=== PATIENT | female | born 1970 | race Caucasian/White ===

== ENCOUNTER 2016-10-02 16:24 | Inpatient (IN) | payer OTHER ==
[~2016-10-02] VITALS: Ht 170.2 cm; Wt 66.2 kg
[~2016-10-02 16:24] MED LIST: BISA10SU1 RC; CEFT1PDS43 IV; DEXT1CAP3 GT; IRON65TA10 GT; KEP500L GT; LAC GT; LEVO500T6 GT; MAGN400S60 GT; MEDI30SO GT; NA P135N19 RC; OMEP20TC9 GT; [UNRECOGNIZED DRUG - CODE] GT
[2016-10-02 16:28] VITALS: BP 124/66
[2016-10-02] MEDS ORDERED: CRAN450C GT (16:56)
[2016-10-02] MEDS ORDERED: DOCU100L GT (16:56)
[2016-10-02] MEDS ORDERED: CARV6.25 GT (16:56)
[2016-10-02] MEDS ORDERED: [UNRECOGNIZED DRUG - CODE] GT (16:56)
[2016-10-02] MEDS ORDERED: MULT-877 GT (16:56)
[2016-10-02] MEDS ORDERED: OMEP20EC4 GT (16:56)
[2016-10-02 17:17] LABS: BASOPHILS # (AUTO) 0.2 K/uL (0.00-0.22); BASOPHILS % (AUTO) 2.1 % (0.0-2.0)
[2016-10-02 17:19] LABS: BLOOD GAS HCO3 18.3 mmol/L; BLOOD GAS PCO2 38.6 mmHg (20-50); BLOOD GAS PH 7.293 (7.35-7.45); BLOOD GAS PO2 63.3 mmHg
[2016-10-02 17:20] LABS: BLOOD GAS BASE EXCESS -7.6 mmol/L (-2.0-2.0); BLOOD GAS O2 SAT% 89.5 % (92.0-98.5)
[2016-10-02 17:22] LABS: EOSINOPHILS # (AUTO) 0.2 K/uL (0-0.4); EOSINOPHILS % (AUTO) 1.8 % (0.0-4.0); HEMATOCRIT 44.1 % (36-48); HEMOGLOBIN 14.9 g/dL (12.0-16.0); LYMPHOCYTES # (AUTO) 1.6 K/uL (2.5-16.5); LYMPHOCYTES % (AUTO) 17.4 % (20.5-51.1); MEAN CORPUSCULAR HEMOGLOBIN 33 pg (27-31); MEAN CORPUSCULAR HGB CONC 34 g/dL (33-37); MEAN CORPUSCULAR VOLUME 99 fL (80-94); MONOCYTES # (AUTO) 0.4 K/uL (0.8-1.0); MONOCYTES % (AUTO) 4.4 % (1.7-9.3); NEUTROPHILS # (AUTO) 6.7 K/uL (1.8-7.7); NEUTROPHILS % (AUTO) 74.3 % (42.2-75.2); PLATELET COUNT (AUTO) 261 K/uL (140-450); RED BLOOD CELL COUNT(AUTO) 4.44 MIL/uL (4.20-5.40); RED CELL DISTRIBUTION WIDTH 12.1 % (11.6-13.7); WHITE BLOOD COUNT (AUTO) 9.1 K/uL (4.8-10.8)
[2016-10-02 17:30] LABS: INR 1.1 (0.8-1.2); PARTIAL THROMBOPLASTIN TIME 28.5 secs (22-35.6); PROTHROMBIN TIME 10.4 secs (10.8-13.4)
[2016-10-02 17:32] LABS: CALCIUM 7.9 mg/dL (8.5-10.1); CARBON DIOXIDE 21.1 mmol/L (21-32); CREATININE 0.9 mg/dL (0.6-1.3); POTASSIUM 4.1 mmol/L (3.5-5.1)
[2016-10-02] MEDS ORDERED: NACL 0.9% 1,000 ML IV ONE (17:35)
[2016-10-02 17:37] LABS: ALBUMIN 3.2 g/dL (3.4-5.0); TOTAL BILIRUBIN 0.3 mg/dL (0.0-1.0); TOTAL PROTEIN, SERUM 7.3 g/dL (6.4-8.2)
[2016-10-02 18:26] LABS: BILIRUBIN,URINE NEGATIVE (NEGATIVE); BLOOD, URINE 2+ (NEGATIVE); COLOR,URINE YELLOW (YELLOW); NITRITE, URINE NEGATIVE (NEGATIVE); PROTEIN,URINE 3+ (NEGATIVE); UGLUCOSE TRACE (NEGATIVE)
[2016-10-02 18:31] LABS: APPEARANCE,URINE CLOUDY (CLEAR)
[2016-10-02 18:42] LABS: LEUKOCYTE ESTERASE ,URINE TRACE (NEGATIVE)
[2016-10-02 18:44] LABS: BACTERIA,URINE 3+ /HPF (None Seen)
[2016-10-02] MEDS ORDERED: ALBUMIN HUMAN 25% 50 ML IV SCH (18:50)
[2016-10-02] MEDS ORDERED: MORPHINE SULFATE 2 MG/ML SYR IVP PRN (18:50)
[2016-10-02] MEDS ORDERED: ACETAMINOPHEN 325 MG TAB PO PRN (18:50)
[2016-10-02] MEDS ORDERED: ONDANSETRON 4 MG/2 ML VIAL IVP PRN (18:50)
[2016-10-02 19:06] VITALS: BP 109/83
[2016-10-02] MEDS ORDERED: cefTRIAXone 1,000 MG VIAL ONE (19:17)
[2016-10-02] MEDS: IPRATROPIUM 0.02% 0.5 MG/2.5 ML NEBU IH SCH (21:22)
[2016-10-02] MEDS: ALBUTEROL 0.083% 2.5 MG/3 ML NEBU IH SCH (21:22)
[2016-10-02 21:38] VITALS: BP 108/81
[2016-10-02 23:10] VITALS: BP 105/85
[2016-10-03] VITALS (24 sets, daily range): BP systolic 91–144; BP diastolic 54–99
[2016-10-03] MEDS: ALBUTEROL 0.083% 2.5 MG/3 ML NEBU IH SCH ×4 (00:40→19:13)
[2016-10-03] MEDS: IPRATROPIUM 0.02% 0.5 MG/2.5 ML NEBU IH SCH ×4 (00:40→19:13)
[2016-10-03] MEDS ORDERED: PIPERACILLIN/TAZOBACTAM 3.375 GM VIAL IV ONE ×2 (00:41→04:59)
[2016-10-03] MEDS: NACL 0.9% 1,000 ML IV SCH ×3 (00:51→14:50)
[2016-10-03] MEDS: PIPERACILLIN/TAZOBACTAM 3.375 GM in DEXTROSE 5% 50 ML IV SCH ×2 (00:56→05:03)
[2016-10-03 01:16] LABS: CREATINE KINASE MB 2.6 ng/mL (0-3.6)
[2016-10-03] MEDS ORDERED: LORazepam 2 MG/ML VIAL IVP PRN (06:00)
[2016-10-03 06:04] LABS: WHITE BLOOD COUNT (AUTO) 18.3 K/uL (4.8-10.8)
[2016-10-03 06:05] LABS: HEMATOCRIT 34.9 % (36-48); HEMOGLOBIN 12.1 g/dL (12.0-16.0); MEAN CORPUSCULAR HEMOGLOBIN 34 pg (27-31); MEAN CORPUSCULAR HGB CONC 35 g/dL (33-37); MEAN CORPUSCULAR VOLUME 99 fL (80-94); PLATELET COUNT (AUTO) 184 K/uL (140-450); RED BLOOD CELL COUNT(AUTO) 3.54 MIL/uL (4.20-5.40); RED CELL DISTRIBUTION WIDTH 12.1 % (11.6-13.7)
[2016-10-03] MEDS ORDERED: levETIRAcetam 500 MG in NACL 0.9% 100 ML IV SCH ×2 (06:20→21:00)
[2016-10-03] MEDS ORDERED: levETIRAcetam 100 MG/ML VIAL IV ONE (06:31)
[2016-10-03 07:04] LABS: POTASSIUM 3.4 mmol/L (3.5-5.1)
[2016-10-03 07:05] LABS: ALBUMIN 3.1 g/dL (3.4-5.0); ANION GAP 12.9 (8-16); CARBON DIOXIDE 23.5 mmol/L (21-32); CREATININE 0.6 mg/dL (0.6-1.3); TOTAL BILIRUBIN 0.5 mg/dL (0.0-1.0); TOTAL PROTEIN, SERUM 6.5 g/dL (6.4-8.2)
[2016-10-03 07:11] LABS: BAND % (MANUAL) 3 % (0-8); LYMPHOCYTES % (MANUAL) 2 % (20-46); MONOCYTES % (MANUAL) 2 % (5-12); NEUTROPHILS % (MANUAL) 93 (43-65)
[2016-10-03] MEDS ORDERED: ASPIRIN 81 MG TAB.CHEW GT SCH (09:30)
[2016-10-03] MEDS ORDERED: METOPROLOL 25 MG TAB GT SCH (09:30)
[2016-10-03] MEDS: ENOXAPARIN 40 MG/0.4 ML SYR SUBQ SCH (09:37)
[2016-10-03 10:25] LABS: CREATINE KINASE MB 1.6 ng/mL (0-3.6)
[2016-10-03] MEDS: PIPER/TAZO 3.375GM/D5W PREMIX 50 ML IV SCH ×3 (12:42→23:49)
[2016-10-03] MEDS ORDERED: PROBIOTIC SCREEN 1 EA MISC MC PRN (16:40)
[2016-10-03] MEDS ORDERED: POTASSIUM CHLORIDE 10 MEQ TABER PO SCH (17:00)
[2016-10-03] MEDS: VALPROATE SODIUM 500 MG in NACL 0.9% 100 ML IV SCH ×2 (17:09→20:28)
[2016-10-03] MEDS: METOPROLOL 25 MG TAB GT SCH (20:27)
[2016-10-03] MEDS: SIMVASTATIN 20 MG TAB GT SCH (20:28)
[2016-10-03] MEDS: TOPIRAMATE 100 MG TAB GT SCH (20:28)
[2016-10-03] MEDS: levETIRAcetam 1,000 MG in NACL 0.9% 100 ML IV SCH (20:29)
[2016-10-03] MEDS ORDERED: levETIRAcetam 1,000 MG in NACL 0.9% 100 ML IV SCH (21:00)
[2016-10-04] VITALS (24 sets, daily range): BP systolic 113–143; BP diastolic 62–89
[2016-10-04] MEDS: NACL 0.9% 1,000 ML IV SCH ×3 (00:50→20:57)
[2016-10-04] MEDS: IPRATROPIUM 0.02% 0.5 MG/2.5 ML NEBU IH SCH ×4 (01:48→19:16)
[2016-10-04] MEDS: ALBUTEROL 0.083% 2.5 MG/3 ML NEBU IH SCH ×4 (01:48→19:16)
[2016-10-04 05:06] LABS: HEMATOCRIT 33.4 % (36-48); HEMOGLOBIN 11.2 g/dL (12.0-16.0); MEAN CORPUSCULAR HEMOGLOBIN 33 pg (27-31); MEAN CORPUSCULAR HGB CONC 33 g/dL (33-37); MEAN CORPUSCULAR VOLUME 99 fL (80-94); PLATELET COUNT (AUTO) 173 K/uL (140-450); RED BLOOD CELL COUNT(AUTO) 3.38 MIL/uL (4.20-5.40); WHITE BLOOD COUNT (AUTO) 17.1 K/uL (4.8-10.8)
[2016-10-04] MEDS: levETIRAcetam 1,000 MG in NACL 0.9% 100 ML IV SCH ×3 (05:06→20:58)
[2016-10-04] MEDS: VALPROATE SODIUM 500 MG in NACL 0.9% 100 ML IV SCH ×3 (05:06→20:58)
[2016-10-04] MEDS: PIPER/TAZO 3.375GM/D5W PREMIX 50 ML IV SCH ×3 (05:52→18:23)
[2016-10-04 06:17] LABS: ALBUMIN 2.8 g/dL (3.4-5.0); ANION GAP 12.9 (8-16); CALCIUM 7.2 mg/dL (8.5-10.1); CARBON DIOXIDE 22.4 mmol/L (21-32); CREATININE 0.6 mg/dL (0.6-1.3); POTASSIUM 3.3 mmol/L (3.5-5.1); TOTAL BILIRUBIN 0.5 mg/dL (0.0-1.0); TOTAL PROTEIN, SERUM 6.1 g/dL (6.4-8.2)
[2016-10-04 06:47] LABS: BAND % (MANUAL) 3 % (0-8); LYMPHOCYTES % (MANUAL) 7 % (20-46); MONOCYTES % (MANUAL) 7 % (5-12); NEUTROPHILS % (MANUAL) 82 (43-65)
[2016-10-04] MEDS: TOPIRAMATE 100 MG TAB GT SCH ×2 (09:06→20:58)
[2016-10-04] MEDS: ASPIRIN 81 MG TAB.CHEW GT SCH (09:06)
[2016-10-04] MEDS: METOPROLOL 25 MG TAB GT SCH ×2 (09:07→20:57)
[2016-10-04] MEDS: LACTOBACILLUS RHAMNOSUS GG 1 EACH CAP GT SCH (09:07)
[2016-10-04] MEDS: ENOXAPARIN 40 MG/0.4 ML SYR SUBQ SCH (09:08)
[2016-10-04] MEDS ORDERED: POTASSIUM CHLORIDE 10 MEQ TABER PO SCH (10:00)
[2016-10-04] MEDS ORDERED: POTASSIUM CHLORIDE 20% 40 MEQ/15 ML UDC GT SCH (10:00)
[2016-10-04] MEDS: ACETAMINOPHEN 325 MG TAB GT PRN (11:32)
[2016-10-04] MEDS: SIMVASTATIN 20 MG TAB GT SCH (20:57)
[2016-10-05] VITALS (24 sets, daily range): BP systolic 98–142; BP diastolic 52–87
[2016-10-05] MEDS: PIPER/TAZO 3.375GM/D5W PREMIX 50 ML IV SCH ×5 (00:44→23:45)
[2016-10-05] MEDS: ALBUTEROL 0.083% 2.5 MG/3 ML NEBU IH SCH ×4 (00:51→19:00)
[2016-10-05] MEDS: IPRATROPIUM 0.02% 0.5 MG/2.5 ML NEBU IH SCH ×4 (00:51→19:00)
[2016-10-05] MEDS: VALPROATE SODIUM 500 MG in NACL 0.9% 100 ML IV SCH ×3 (04:43→20:20)
[2016-10-05] MEDS: levETIRAcetam 1,000 MG in NACL 0.9% 100 ML IV SCH ×3 (04:43→21:10)
[2016-10-05 05:44] LABS: BASOPHILS # (AUTO) 0.1 K/uL (0.00-0.22); BASOPHILS % (AUTO) 0.7 % (0.0-2.0); EOSINOPHILS # (AUTO) 0.1 K/uL (0-0.4); HEMATOCRIT 29.3 % (36-48); HEMOGLOBIN 9.9 g/dL (12.0-16.0); LYMPHOCYTES # (AUTO) 1.6 K/uL (2.5-16.5); LYMPHOCYTES % (AUTO) 13.9 % (20.5-51.1); MEAN CORPUSCULAR HEMOGLOBIN 34 pg (27-31); MEAN CORPUSCULAR HGB CONC 34 g/dL (33-37); MEAN CORPUSCULAR VOLUME 101 fL (80-94); MONOCYTES # (AUTO) 1.1 K/uL (0.8-1.0); MONOCYTES % (AUTO) 9.8 % (1.7-9.3); NEUTROPHILS # (AUTO) 8.3 K/uL (1.8-7.7); NEUTROPHILS % (AUTO) 74.6 % (42.2-75.2); PLATELET COUNT (AUTO) 152 K/uL (140-450); RED BLOOD CELL COUNT(AUTO) 2.92 MIL/uL (4.20-5.40); RED CELL DISTRIBUTION WIDTH 12.9 % (11.6-13.7); WHITE BLOOD COUNT (AUTO) 11.2 K/uL (4.8-10.8)
[2016-10-05] MEDS: LANSOPRAZOLE 30 MG CAPDR GT SCH (05:51)
[2016-10-05] MEDS: NACL 0.9% 1,000 ML IV SCH ×2 (05:52→17:33)
[2016-10-05 05:56] LABS: ALBUMIN 2.3 g/dL (3.4-5.0); CALCIUM 7.1 mg/dL (8.5-10.1); CARBON DIOXIDE 20.4 mmol/L (21-32); CREATININE 0.6 mg/dL (0.6-1.3); POTASSIUM 3.4 mmol/L (3.5-5.1); TOTAL BILIRUBIN 0.3 mg/dL (0.0-1.0); TOTAL PROTEIN, SERUM 5.4 g/dL (6.4-8.2)
[2016-10-05] MEDS: METOPROLOL 25 MG TAB GT SCH ×2 (08:13→20:19)
[2016-10-05] MEDS: ASPIRIN 81 MG TAB.CHEW GT SCH (08:13)
[2016-10-05] MEDS: TOPIRAMATE 100 MG TAB GT SCH ×2 (08:14→20:19)
[2016-10-05] MEDS: LACTOBACILLUS RHAMNOSUS GG 1 EACH CAP GT SCH (08:14)
[2016-10-05] MEDS: ENOXAPARIN 40 MG/0.4 ML SYR SUBQ SCH (08:15)
[2016-10-05] MEDS ORDERED: HYDRAGUARD CREAM TP PRN (10:30)
[2016-10-05] MEDS: HYDRAGUARD CREAM TP SCH (13:17)
[2016-10-05] MEDS ORDERED: POTASSIUM CHLORIDE 20% 40 MEQ/15 ML UDC GT SCH (17:28)
[2016-10-05] MEDS: ACETAMINOPHEN 325 MG TAB GT PRN (19:39)
[2016-10-05] MEDS: SIMVASTATIN 20 MG TAB GT SCH (20:19)
[2016-10-05] MEDS: metroNIDAZOLE 500 MG/NS PREMIX 100 ML IV SCH (21:43)
[2016-10-06] VITALS (24 sets, daily range): BP systolic 91–122; BP diastolic 57–78
[2016-10-06] MEDS: IPRATROPIUM 0.02% 0.5 MG/2.5 ML NEBU IH SCH ×4 (01:00→18:50)
[2016-10-06] MEDS: ALBUTEROL 0.083% 2.5 MG/3 ML NEBU IH SCH ×4 (01:00→18:50)
[2016-10-06] MEDS: HYDRAGUARD CREAM TP SCH ×2 (01:05→12:11)
[2016-10-06] MEDS: metroNIDAZOLE 500 MG/NS PREMIX 100 ML IV SCH ×3 (04:22→20:19)
[2016-10-06] MEDS: NACL 0.9% 1,000 ML IV SCH ×3 (04:24→22:50)
[2016-10-06] MEDS: VALPROATE SODIUM 500 MG in NACL 0.9% 100 ML IV SCH ×3 (05:15→20:02)
[2016-10-06 05:43] LABS: MONOCYTES # (AUTO) 1.1 K/uL (0.8-1.0)
[2016-10-06 05:55] LABS: BASOPHILS # (AUTO) 0.1 K/uL (0.00-0.22); BASOPHILS % (AUTO) 0.8 % (0.0-2.0); EOSINOPHILS # (AUTO) 0.2 K/uL (0-0.4); EOSINOPHILS % (AUTO) 1.2 % (0.0-4.0); HEMATOCRIT 28.6 % (36-48); HEMOGLOBIN 9.5 g/dL (12.0-16.0); LYMPHOCYTES # (AUTO) 0.9 K/uL (2.5-16.5); LYMPHOCYTES % (AUTO) 6.9 % (20.5-51.1); MEAN CORPUSCULAR HEMOGLOBIN 33 pg (27-31); MEAN CORPUSCULAR HGB CONC 33 g/dL (33-37); MEAN CORPUSCULAR VOLUME 100 fL (80-94); MONOCYTES % (AUTO) 8.1 % (1.7-9.3); NEUTROPHILS # (AUTO) 11.4 K/uL (1.8-7.7); PLATELET COUNT (AUTO) 160 K/uL (140-450); RED BLOOD CELL COUNT(AUTO) 2.86 MIL/uL (4.20-5.40); RED CELL DISTRIBUTION WIDTH 12.8 % (11.6-13.7); WHITE BLOOD COUNT (AUTO) 13.7 K/uL (4.8-10.8)
[2016-10-06 06:05] LABS: ANION GAP 13.8 (8-16); CALCIUM 6.8 mg/dL (8.5-10.1); CARBON DIOXIDE 19.4 mmol/L (21-32); CREATININE 0.5 mg/dL (0.6-1.3); POTASSIUM 3.2 mmol/L (3.5-5.1)
[2016-10-06] MEDS: levETIRAcetam 1,000 MG in NACL 0.9% 100 ML IV SCH ×3 (06:18→21:02)
[2016-10-06] MEDS: PIPER/TAZO 3.375GM/D5W PREMIX 50 ML IV SCH ×4 (06:58→23:29)
[2016-10-06] MEDS: LANSOPRAZOLE 30 MG CAPDR GT SCH (07:12)
[2016-10-06] MEDS: TOPIRAMATE 100 MG TAB GT SCH ×2 (08:08→20:19)
[2016-10-06] MEDS: LACTOBACILLUS RHAMNOSUS GG 1 EACH CAP GT SCH (08:08)
[2016-10-06] MEDS: ASPIRIN 81 MG TAB.CHEW GT SCH (08:08)
[2016-10-06] MEDS: METOPROLOL 25 MG TAB GT SCH ×2 (08:09→20:19)
[2016-10-06] MEDS: ENOXAPARIN 40 MG/0.4 ML SYR SUBQ SCH (08:14)
[2016-10-06] MEDS ORDERED: POTASSIUM CHLORIDE 20% 40 MEQ/15 ML UDC GT SCH (12:00)
[2016-10-06] MEDS: SIMVASTATIN 20 MG TAB GT SCH (20:19)
[2016-10-07] VITALS (24 sets, daily range): BP systolic 108–120; BP diastolic 63–84
[2016-10-07] MEDS: IPRATROPIUM 0.02% 0.5 MG/2.5 ML NEBU IH SCH ×4 (01:08→18:55)
[2016-10-07] MEDS: ALBUTEROL 0.083% 2.5 MG/3 ML NEBU IH SCH ×4 (01:08→18:55)
[2016-10-07] MEDS: HYDRAGUARD CREAM TP SCH ×2 (01:46→13:00)
[2016-10-07] MEDS: NACL 0.9% 1,000 ML IV SCH ×3 (03:37→20:03)
[2016-10-07] MEDS: levETIRAcetam 1,000 MG in NACL 0.9% 100 ML IV SCH ×3 (04:04→20:02)
[2016-10-07] MEDS: VALPROATE SODIUM 500 MG in NACL 0.9% 100 ML IV SCH ×3 (04:37→20:03)
[2016-10-07] MEDS: PIPER/TAZO 3.375GM/D5W PREMIX 50 ML IV SCH ×4 (05:18→23:12)
[2016-10-07] MEDS: metroNIDAZOLE 500 MG/NS PREMIX 100 ML IV SCH ×3 (05:18→20:59)
[2016-10-07] MEDS: LANSOPRAZOLE 30 MG CAPDR GT SCH (06:31)
[2016-10-07 06:39] LABS: HEMATOCRIT 24.9 % (36-48); HEMOGLOBIN 8.3 g/dL (12.0-16.0); MEAN CORPUSCULAR HEMOGLOBIN 33 pg (27-31); MEAN CORPUSCULAR HGB CONC 33 g/dL (33-37); MEAN CORPUSCULAR VOLUME 100 fL (80-94); PLATELET COUNT (AUTO) 158 K/uL (140-450); RED BLOOD CELL COUNT(AUTO) 2.49 MIL/uL (4.20-5.40); RED CELL DISTRIBUTION WIDTH 12.7 % (11.6-13.7); WHITE BLOOD COUNT (AUTO) 9.5 K/uL (4.8-10.8)
[2016-10-07 06:43] LABS: ANION GAP 12.5 (8-16); CALCIUM 6.8 mg/dL (8.5-10.1); CARBON DIOXIDE 20.8 mmol/L (21-32); CREATININE 0.5 mg/dL (0.6-1.3); POTASSIUM 3.3 mmol/L (3.5-5.1)
[2016-10-07 07:40] LABS: BAND % (MANUAL) 0 % (0-8); LYMPHOCYTES % (MANUAL) 9 % (20-46); MONOCYTES % (MANUAL) 8 % (5-12); NEUTROPHILS % (MANUAL) 83 (43-65)
[2016-10-07 07:41] LABS: BASOPHILS % (MANUAL) 0 % (0-2); EOSINOPHILS % (MANUAL) 0 % (0-4); PLATELET ESTIMATE ADEQUATE
[2016-10-07] MEDS: METOPROLOL 25 MG TAB GT SCH ×2 (08:43→20:59)
[2016-10-07] MEDS: ASPIRIN 81 MG TAB.CHEW GT SCH (08:43)
[2016-10-07] MEDS: TOPIRAMATE 100 MG TAB GT SCH ×2 (08:43→20:59)
[2016-10-07] MEDS: LACTOBACILLUS RHAMNOSUS GG 1 EACH CAP GT SCH (08:44)
[2016-10-07] MEDS: ENOXAPARIN 40 MG/0.4 ML SYR SUBQ SCH (08:45)
[2016-10-07] MEDS ORDERED: POTASSIUM CHLORIDE 20% 40 MEQ/15 ML UDC GT SCH (12:00)
[2016-10-07] MEDS ORDERED: MAG SULF 2000 MG/WATER PREMIX 50 ML IV SCH (13:30)
[2016-10-07] MEDS: SIMVASTATIN 20 MG TAB GT SCH (20:59)
[2016-10-08] VITALS (24 sets, daily range): BP systolic 98–140; BP diastolic 60–89
[2016-10-08] MEDS: HYDRAGUARD CREAM TP SCH ×2 (01:00→13:01)
[2016-10-08] MEDS: IPRATROPIUM 0.02% 0.5 MG/2.5 ML NEBU IH SCH ×4 (01:05→19:07)
[2016-10-08] MEDS: ALBUTEROL 0.083% 2.5 MG/3 ML NEBU IH SCH ×4 (01:06→19:08)
[2016-10-08] MEDS: levETIRAcetam 1,000 MG in NACL 0.9% 100 ML IV SCH ×3 (04:02→21:00)
[2016-10-08] MEDS: VALPROATE SODIUM 500 MG in NACL 0.9% 100 ML IV SCH ×3 (04:08→22:06)
[2016-10-08] MEDS: metroNIDAZOLE 500 MG/NS PREMIX 100 ML IV SCH ×3 (04:28→21:09)
[2016-10-08] MEDS: LANSOPRAZOLE 30 MG CAPDR GT SCH (05:33)
[2016-10-08] MEDS: LACTOBACILLUS RHAMNOSUS GG 1 EACH CAP GT SCH (08:51)
[2016-10-08] MEDS: ASPIRIN 81 MG TAB.CHEW GT SCH (08:51)
[2016-10-08] MEDS: TOPIRAMATE 100 MG TAB GT SCH ×2 (08:51→21:05)
[2016-10-08] MEDS: METOPROLOL 25 MG TAB GT SCH ×2 (08:52→21:06)
[2016-10-08] MEDS: ENOXAPARIN 40 MG/0.4 ML SYR SUBQ SCH (08:54)
[2016-10-08] MEDS ORDERED: POTASSIUM CHLORIDE 20% 40 MEQ/15 ML UDC GT SCH (11:00)
[2016-10-08] MEDS: NACL 0.9% 1,000 ML IV SCH ×2 (13:00→14:50)
[2016-10-08] MEDS: ACETAMINOPHEN 325 MG TAB GT PRN (18:09)
[2016-10-08] MEDS: SIMVASTATIN 20 MG TAB GT SCH (21:05)
[2016-10-09] VITALS (24 sets, daily range): BP systolic 111–176; BP diastolic 71–94
[2016-10-09] MEDS: HYDRAGUARD CREAM TP SCH ×2 (01:00→12:56)
[2016-10-09] MEDS: IPRATROPIUM 0.02% 0.5 MG/2.5 ML NEBU IH SCH ×4 (01:17→19:55)
[2016-10-09] MEDS: ALBUTEROL 0.083% 2.5 MG/3 ML NEBU IH SCH ×4 (01:17→19:55)
[2016-10-09] MEDS: NACL 0.9% 1,000 ML IV SCH ×2 (01:55→09:54)
[2016-10-09] MEDS: metroNIDAZOLE 500 MG/NS PREMIX 100 ML IV SCH (04:35)
[2016-10-09] MEDS: VALPROATE SODIUM 500 MG in NACL 0.9% 100 ML IV SCH (05:18)
[2016-10-09] MEDS: levETIRAcetam 1,000 MG in NACL 0.9% 100 ML IV SCH (05:19)
[2016-10-09] MEDS: LANSOPRAZOLE 30 MG CAPDR GT SCH (06:35)
[2016-10-09] MEDS: ASPIRIN 81 MG TAB.CHEW GT SCH (08:07)
[2016-10-09] MEDS: TOPIRAMATE 100 MG TAB GT SCH ×2 (08:07→20:23)
[2016-10-09] MEDS: METOPROLOL 25 MG TAB GT SCH ×2 (08:07→20:23)
[2016-10-09] MEDS: ENOXAPARIN 40 MG/0.4 ML SYR SUBQ SCH (08:12)
[2016-10-09] MEDS: LACTOBACILLUS RHAMNOSUS GG 1 EACH CAP GT SCH (08:20)
[2016-10-09] MEDS ORDERED: MORPHINE SULFATE 2 MG/ML SYR IVP PRN (10:20)
[2016-10-09] MEDS: metroNIDAZOLE 500 MG TAB GT SCH ×2 (12:55→20:22)
[2016-10-09] MEDS: VALPROIC ACID 250 MG/5 ML UDC GT SCH ×2 (12:55→20:21)
[2016-10-09] MEDS: levETIRAcetam 500 MG TAB GT SCH ×2 (12:55→20:22)
[2016-10-09] MEDS: SIMVASTATIN 20 MG TAB GT SCH (20:24)
[2016-10-09] MEDS: ACETAMINOPHEN 325 MG TAB GT PRN (20:24)
[2016-10-10] VITALS (24 sets, daily range): BP systolic 94–132; BP diastolic 62–86
[2016-10-10] MEDS: HYDRAGUARD CREAM TP SCH ×2 (01:00→12:16)
[2016-10-10] MEDS: ALBUTEROL 0.083% 2.5 MG/3 ML NEBU IH SCH ×4 (01:33→19:06)
[2016-10-10] MEDS: IPRATROPIUM 0.02% 0.5 MG/2.5 ML NEBU IH SCH ×4 (01:33→19:06)
[2016-10-10] MEDS: VALPROIC ACID 250 MG/5 ML UDC GT SCH ×3 (05:00→20:41)
[2016-10-10] MEDS: metroNIDAZOLE 500 MG TAB GT SCH ×3 (05:00→20:40)
[2016-10-10] MEDS: levETIRAcetam 500 MG TAB GT SCH ×3 (05:01→20:41)
[2016-10-10 05:23] LABS: ANION GAP 13.1 (8-16); CALCIUM 7.6 mg/dL (8.5-10.1); CARBON DIOXIDE 21.5 mmol/L (21-32); CREATININE 0.5 mg/dL (0.6-1.3); POTASSIUM 3.6 mmol/L (3.5-5.1)
[2016-10-10 05:40] LABS: BASOPHILS # (AUTO) 0.1 K/uL (0.00-0.22); BASOPHILS % (AUTO) 0.7 % (0.0-2.0); EOSINOPHILS # (AUTO) 0.1 K/uL (0-0.4); EOSINOPHILS % (AUTO) 1.1 % (0.0-4.0); HEMATOCRIT 29.7 % (36-48); HEMOGLOBIN 9.6 g/dL (12.0-16.0); LYMPHOCYTES # (AUTO) 1.1 K/uL (2.5-16.5); LYMPHOCYTES % (AUTO) 13.7 % (20.5-51.1); MEAN CORPUSCULAR HEMOGLOBIN 32 pg (27-31); MEAN CORPUSCULAR HGB CONC 32 g/dL (33-37); MEAN CORPUSCULAR VOLUME 101 fL (80-94); NEUTROPHILS # (AUTO) 5.4 K/uL (1.8-7.7); NEUTROPHILS % (AUTO) 71.5 % (42.2-75.2); PLATELET COUNT (AUTO) 305 K/uL (140-450); RED BLOOD CELL COUNT(AUTO) 2.94 MIL/uL (4.20-5.40); RED CELL DISTRIBUTION WIDTH 12.7 % (11.6-13.7); WHITE BLOOD COUNT (AUTO) 7.7 K/uL (4.8-10.8)
[2016-10-10] MEDS: LANSOPRAZOLE 30 MG CAPDR GT SCH (06:15)
[2016-10-10] MEDS: ASPIRIN 81 MG TAB.CHEW GT SCH (08:29)
[2016-10-10] MEDS: TOPIRAMATE 100 MG TAB GT SCH ×2 (08:29→20:40)
[2016-10-10] MEDS: METOPROLOL 25 MG TAB GT SCH ×2 (08:30→20:40)
[2016-10-10] MEDS: LACTOBACILLUS RHAMNOSUS GG 1 EACH CAP GT SCH (08:30)
[2016-10-10] MEDS: ENOXAPARIN 40 MG/0.4 ML SYR SUBQ SCH (08:32)
[2016-10-10] MEDS: ACETAMINOPHEN 325 MG TAB GT PRN (12:14)
[2016-10-10] MEDS: SIMVASTATIN 20 MG TAB GT SCH (20:41)
[2016-10-10] MEDS ORDERED: CARVEDILOL 6.25 MG TAB GT SCH (21:00)
[2016-10-11] VITALS (19 sets, daily range): BP systolic 90–108; BP diastolic 60–70
[2016-10-11] MEDS: HYDRAGUARD CREAM TP SCH ×2 (01:08→12:47)
[2016-10-11] MEDS: ALBUTEROL 0.083% 2.5 MG/3 ML NEBU IH SCH ×3 (01:38→13:17)
[2016-10-11] MEDS: IPRATROPIUM 0.02% 0.5 MG/2.5 ML NEBU IH SCH ×3 (01:38→13:17)
[2016-10-11] MEDS: VALPROIC ACID 250 MG/5 ML UDC GT SCH ×2 (04:34→12:46)
[2016-10-11] MEDS: levETIRAcetam 500 MG TAB GT SCH ×2 (04:34→12:46)
[2016-10-11] MEDS: metroNIDAZOLE 500 MG TAB GT SCH ×2 (04:34→12:45)
[2016-10-11] MEDS: LANSOPRAZOLE 30 MG CAPDR GT SCH (05:58)
[2016-10-11] MEDS: LACTOBACILLUS RHAMNOSUS GG 1 EACH CAP GT SCH (08:29)
[2016-10-11] MEDS: TOPIRAMATE 100 MG TAB GT SCH (08:29)
[2016-10-11] MEDS: ASPIRIN 81 MG TAB.CHEW GT SCH (08:30)
[2016-10-11] MEDS: METOPROLOL 25 MG TAB GT SCH (08:30)
[2016-10-11] MEDS: ENOXAPARIN 40 MG/0.4 ML SYR SUBQ SCH (08:33)
== END 2016-10-11 19:40 | DRG 720 ==
LOC: MED 16:24 → MIC 20:33
PROVIDERS: ADMIT Internal Medicine Pulmonary Disease; ATTEND Internal Medicine Pulmonary Disease
PROC: 0W9B30Z Drainage of Left Pleural Cavity with Drainage Device, Percutaneous Approach (ICD-10-PCS; principal; 2016-10-02)
PROC: 05H633Z Insertion of Infusion Device into Left Subclavian Vein, Percutaneous Approach (ICD-10-PCS; 2016-10-02)
PROC: 5A1955Z Respiratory Ventilation, Greater than 96 Consecutive Hours (ICD-10-PCS; 2016-10-02)
DX: A41.9 Sepsis, unspecified organism (principal); I46.9 Cardiac arrest, cause unspecified; J96.20 Acute and chronic respiratory failure, unspecified whether with hypoxia or hypercapnia; G04.90 Encephalitis and encephalomyelitis, unspecified; R40.20 Unspecified coma; A04.7 Enterocolitis due to Clostridium difficile; G93.1 Anoxic brain damage, not elsewhere classified; Z99.11 Dependence on respirator [ventilator] status; N39.0 Urinary tract infection, site not specified; Z93.0 Tracheostomy status; J93.9 Pneumothorax, unspecified; R40.3 Persistent vegetative state; G40.901 Epilepsy, unspecified, not intractable, with status epilepticus; J98.2 Interstitial emphysema; I31.9 Disease of pericardium, unspecified; R00.0 Tachycardia, unspecified; Z93.1 Gastrostomy status; Z86.61 Personal history of infections of the central nervous system; Z86.73 Personal history of transient ischemic attack (TIA), and cerebral infarction without residual deficits
CPT/HCPCS: 36415; 36600; 51702; 70450; 71010; 71275; 80048; 80053; 81001; 81025; 82550; 82553; 82803; 83605; 83735; 83874; 83880; 84484; 85025; 85610; 85730; 87040; 87070; 87081; 87086; 87186; 87205; 89220; 93005; 93308; 94002; 94003; 94640; 95816; 96361; 96365; 99291; J0696; J1650; J1953; J2060; J2270; J2543; J3475; J3490; J7030; J7060; J7613; J7644; P9046; Q0092; Q9967

== ENCOUNTER 2019-10-30 15:18 | Inpatient (IN) | payer OTHER, SELFPAY ==
[2019-10-30] VITALS (12 sets, daily range): BP systolic 86–168; BP diastolic 48–104
[~2019-10-30] VITALS: Ht 165.1 cm; Wt 73.5 kg
[2019-10-30] MEDS ORDERED: IBUPROFEN CHILDRENS 100 MG/5 ML UDC GT ONE (15:30)
[2019-10-30] MEDS ORDERED: NACL 0.9% 1,000 ML IV ONE ×2 (15:30→16:45)
[2019-10-30] MEDS ORDERED: LEVE1000 GT (16:20)
[2019-10-30] MEDS ORDERED: METO25TA GT (16:20)
[2019-10-30] MEDS ORDERED: BIOT10004 GT (16:20)
[2019-10-30] MEDS ORDERED: CALC-1214 GT (16:20)
[2019-10-30] MEDS ORDERED: ASPI-1822 GT (16:20)
[2019-10-30] MEDS ORDERED: POTA20LI41 GT (16:20)
[2019-10-30] MEDS ORDERED: FAMO-90 GT (16:20)
[2019-10-30] MEDS ORDERED: TOP100 GT (16:20)
[2019-10-30] MEDS ORDERED: PRO5 GT (16:20)
[2019-10-30] MEDS ORDERED: VALP-22 GT (16:20)
[2019-10-30 16:22] LABS: BASOPHILS % (AUTO) 0.3 % (0.0-2.0); HEMATOCRIT 32.4 % (36-48); HEMOGLOBIN 10.8 g/dL (12.0-16.0); LYMPHOCYTES # (AUTO) 0.6 K/uL (2.5-16.5); LYMPHOCYTES % (AUTO) 4.6 % (20.5-51.1); MEAN CORPUSCULAR HEMOGLOBIN 37 pg (27-31); MEAN CORPUSCULAR HGB CONC 33 g/dL (33-37); MEAN CORPUSCULAR VOLUME 109.4 fL (80-94); MONOCYTES # (AUTO) 1.5 K/uL (0.8-1.0); MONOCYTES % (AUTO) 11.5 % (1.7-9.3); NEUTROPHILS # (AUTO) 10.6 K/uL (1.8-7.7); NEUTROPHILS % (AUTO) 83.6 % (42.2-75.2); PLATELET COUNT (AUTO) 203 K/uL (140-450); RED BLOOD CELL COUNT(AUTO) 2.96 MIL/uL (4.20-5.40); RED CELL DISTRIBUTION WIDTH 13.7 % (11.6-13.7); WHITE BLOOD COUNT (AUTO) 12.7 K/uL (4.8-10.8)
[2019-10-30] MEDS ORDERED: ALEN70TA9 GT (16:24)
[2019-10-30] MEDS ORDERED: NUTR887L11 GT (16:24)
[2019-10-30] MEDS ORDERED: CRAN450C GT (16:24)
[2019-10-30] MEDS ORDERED: LACT10SO1 GT (16:24)
[2019-10-30] MEDS ORDERED: MULT-2171 GT (16:24)
[2019-10-30] MEDS ORDERED: ATOR10TA GT (16:24)
[2019-10-30 16:38] LABS: ANION GAP 16.8 (8-16); CARBON DIOXIDE 20.1 mmol/L (21-32); POTASSIUM 3.9 mmol/L (3.5-5.1)
[2019-10-30 16:40] LABS: PROTHROMBIN TIME 10.4 secs (10.8-13.4)
[2019-10-30 16:43] LABS: APPEARANCE,URINE SL CLOUDY (CLEAR); BILIRUBIN,URINE NEGATIVE (NEGATIVE); BLOOD, URINE 3+ (NEGATIVE); COLOR,URINE YELLOW (YELLOW); LEUKOCYTE ESTERASE ,URINE 3+ (NEGATIVE); NITRITE, URINE NEGATIVE (NEGATIVE); PH,URINE 7.5 (5.0-9.0); UGLUCOSE NEGATIVE (NEGATIVE)
[2019-10-30 16:44] LABS: ALBUMIN 2.2 g/dL (3.4-5.0); TOTAL BILIRUBIN 0.7 mg/dL (0.0-1.0)
[2019-10-30] MEDS ORDERED: PIPERACILLIN/TAZOBACTAM 3.375 GM in DEXTROSE 5% 50 ML IV ONE (16:45)
[2019-10-30] MEDS ORDERED: PIPERACILLIN/TAZOBACTAM 3.375 GM VIAL IV ONE (16:50)
[2019-10-30 17:19] LABS: RBC,URINE 11-20 (MOD) /HPF (0-5); WBC,URINE 16-25 (MOD) /HPF (0-5)
[2019-10-30] MEDS ORDERED: VANCOMYCIN 1,000 MG in DEXTROSE 5% 250 ML IV ONE ×2 (18:05→20:35)
[2019-10-30] MEDS ORDERED: VANCOMYCIN 1,000 MG VIAL ONE ×3 (18:09→22:19)
[2019-10-30] MEDS ORDERED: NOREPINEPHRINE 4 MG in DEXTROSE 5% 250 ML IV ONE (18:45)
[2019-10-30] MEDS ORDERED: NOREPINEPHRINE 4 MG/4 ML VIAL IV ONE (18:47)
[2019-10-30] MEDS ORDERED: ONDANSETRON 4 MG/2 ML VIAL IVP PRN (20:15)
[2019-10-30] MEDS ORDERED: ALBUTEROL 0.083% 2.5 MG/3 ML NEBU INH PRN (20:15)
[2019-10-30] MEDS ORDERED: IPRATROPIUM 0.02% 0.5 MG/2.5 ML NEBU INH PRN (20:15)
[2019-10-30] MEDS ORDERED: VANCOMYCIN PER PHARMACY MC PRN (20:15)
[2019-10-30] MEDS: METOPROLOL 25 MG TAB GT SCH (21:00)
[2019-10-30] MEDS ORDERED: CRUSHER, PILL MC ONE ×2 (21:11→21:33)
[2019-10-30] MEDS: FAMOTIDINE 20 MG TAB GT SCH (21:15)
[2019-10-30] MEDS: ATORVASTATIN 20 MG TAB GT SCH (21:15)
[2019-10-30] MEDS ORDERED: ALBUTEROL HFA MDI 90 MCG/ACTUATION 8 GM INH PRN (22:20)
[2019-10-30] MEDS: TOPIRAMATE 100 MG TAB GT SCH (22:39)
[2019-10-30] MEDS: VALPROIC ACID 250 MG/5 ML UDC GT SCH (22:40)
[2019-10-30] MEDS: MIDODRINE 5 MG TAB GT SCH (22:40)
[2019-10-30] MEDS: levETIRAcetam 100 MG/ML ORASYR GT SCH (22:40)
[2019-10-30] MEDS ORDERED: ALBUTEROL 0.083% 2.5 MG/3 ML NEBU INH SCH (23:00)
[2019-10-31] VITALS (36 sets, daily range): BP systolic 87–156; BP diastolic 43–89
[2019-10-31] MEDS: MIDODRINE 5 MG TAB GT SCH ×4 (04:41→18:23)
[2019-10-31] MEDS: VALPROIC ACID 250 MG/5 ML UDC GT SCH ×3 (04:41→20:25)
[2019-10-31] MEDS: levETIRAcetam 100 MG/ML ORASYR GT SCH ×3 (04:41→13:01)
[2019-10-31] MEDS: ACETAMINOPHEN 325 MG TAB PO PRN (04:52)
[2019-10-31] MEDS ORDERED: PIPERACILLIN/TAZOBACTAM 3.375 GM VIAL IV ONE (04:54)
[2019-10-31] MEDS: PIPERACILLIN/TAZOBACTAM 3.375 GM in DEXTROSE 5% 50 ML IV SCH ×3 (05:18→20:28)
[2019-10-31 06:52] LABS: BASOPHILS % (AUTO) 0.2 % (0.0-2.0); HEMATOCRIT 26.3 % (36-48); HEMOGLOBIN 8.8 g/dL (12.0-16.0); LYMPHOCYTES # (AUTO) 0.8 K/uL (2.5-16.5); LYMPHOCYTES % (AUTO) 5.7 % (20.5-51.1); MEAN CORPUSCULAR HEMOGLOBIN 37 pg (27-31); MEAN CORPUSCULAR HGB CONC 34 g/dL (33-37); MONOCYTES # (AUTO) 1.8 K/uL (0.8-1.0); MONOCYTES % (AUTO) 13.5 % (1.7-9.3); NEUTROPHILS # (AUTO) 10.8 K/uL (1.8-7.7); NEUTROPHILS % (AUTO) 80.6 % (42.2-75.2); PLATELET COUNT (AUTO) 155 K/uL (140-450); RED BLOOD CELL COUNT(AUTO) 2.41 MIL/uL (4.20-5.40); RED CELL DISTRIBUTION WIDTH 13.2 % (11.6-13.7); WHITE BLOOD COUNT (AUTO) 13.4 K/uL (4.8-10.8)
[2019-10-31 07:14] LABS: ALBUMIN 1.5 g/dL (3.4-5.0); ANION GAP 17.2 (8-16); CARBON DIOXIDE 16.8 mmol/L (21-32); CREATININE 0.8 mg/dL (0.6-1.3); TOTAL BILIRUBIN 0.7 mg/dL (0.0-1.0)
[2019-10-31 07:36] LABS: MAGNESIUM 1.7 mg/dL (1.8-2.4); THYROID STIMULATING HORMONE 1.13 uIU/mL (0.34-3.74)
[2019-10-31] MEDS: METOPROLOL 25 MG TAB GT SCH ×2 (08:29→20:26)
[2019-10-31] MEDS: TOPIRAMATE 100 MG TAB GT SCH ×2 (08:30→20:25)
[2019-10-31] MEDS: ASPIRIN 81 MG TAB.CHEW GT SCH (08:30)
[2019-10-31] MEDS: MULTIVITAMIN 1 TAB GT SCH (08:30)
[2019-10-31] MEDS: FAMOTIDINE 20 MG TAB GT SCH ×2 (08:30→20:25)
[2019-10-31] MEDS: VANCOMYCIN 1,000 MG in DEXTROSE 5% 250 ML IV SCH ×2 (08:39→20:28)
[2019-10-31] MEDS: ALBUMIN HUMAN 25% 100 ML IV SCH ×2 (11:16→20:26)
[2019-10-31] MEDS: NACL 0.9% 1,000 ML IV SCH (13:30)
[2019-10-31] MEDS: ATORVASTATIN 20 MG TAB GT SCH (20:25)
[2019-11-01] VITALS (12 sets, daily range): BP systolic 100–170; BP diastolic 60–74
[2019-11-01] MEDS: MIDODRINE 5 MG TAB GT SCH ×4 (01:17→18:12)
[2019-11-01] MEDS: NACL 0.9% 1,000 ML IV SCH ×2 (02:00→15:16)
[2019-11-01] MEDS: levETIRAcetam 100 MG/ML ORASYR GT SCH ×3 (04:58→20:29)
[2019-11-01] MEDS: VALPROIC ACID 250 MG/5 ML UDC GT SCH ×3 (04:58→20:29)
[2019-11-01] MEDS: PIPERACILLIN/TAZOBACTAM 3.375 GM in DEXTROSE 5% 50 ML IV SCH ×3 (04:58→20:29)
[2019-11-01] MEDS: ACETAMINOPHEN 325 MG TAB PO PRN ×2 (06:43→13:33)
[2019-11-01 07:13] LABS: ANION GAP 18.2 (8-16); CARBON DIOXIDE 14.2 mmol/L (21-32); CREATININE 1.2 mg/dL (0.6-1.3); POTASSIUM 3.4 mmol/L (3.5-5.1); TOTAL BILIRUBIN 0.6 mg/dL (0.0-1.0)
[2019-11-01 08:36] LABS: BASOPHILS % (AUTO) 0.1 % (0.0-2.0); EOSINOPHILS % (AUTO) 0.2 % (0.0-4.0); HEMATOCRIT 26.3 % (36-48); LYMPHOCYTES # (AUTO) 0.4 K/uL (2.5-16.5); MEAN CORPUSCULAR HEMOGLOBIN 37 pg (27-31); MEAN CORPUSCULAR HGB CONC 34 g/dL (33-37); MONOCYTES # (AUTO) 0.3 K/uL (0.8-1.0); NEUTROPHILS # (AUTO) 4.8 K/uL (1.8-7.7); PLATELET COUNT (AUTO) 124 K/uL (140-450); RED BLOOD CELL COUNT(AUTO) 2.43 MIL/uL (4.20-5.40); RED CELL DISTRIBUTION WIDTH 13.4 % (11.6-13.7); WHITE BLOOD COUNT (AUTO) 5.4 K/uL (4.8-10.8)
[2019-11-01] MEDS: VANCOMYCIN 1,000 MG in DEXTROSE 5% 250 ML IV SCH (09:00)
[2019-11-01] MEDS: METOPROLOL 25 MG TAB GT SCH ×2 (09:00→20:30)
[2019-11-01] MEDS: ALBUMIN HUMAN 25% 100 ML IV SCH ×2 (09:00→21:17)
[2019-11-01] MEDS: FAMOTIDINE 20 MG TAB GT SCH ×2 (10:07→20:29)
[2019-11-01] MEDS: TOPIRAMATE 100 MG TAB GT SCH ×2 (10:08→20:30)
[2019-11-01] MEDS: MULTIVITAMIN 1 TAB GT SCH (10:08)
[2019-11-01] MEDS: ASPIRIN 81 MG TAB.CHEW GT SCH (10:08)
[2019-11-01 10:27] LABS: LYMPHOCYTES % (AUTO) 6.6 % (20.5-51.1); NEUTROPHILS % (AUTO) 88.1 % (42.2-75.2)
[2019-11-01] MEDS ORDERED: MAG SULF 2000 MG/WATER PREMIX 50 ML IV SCH (10:30)
[2019-11-01] MEDS ORDERED: POTASSIUM CHLORIDE 10 MEQ TABER PO SCH (11:00)
[2019-11-01] MEDS ORDERED: POTASSIUM CHLORIDE 20% 40 MEQ/15 ML UDC PO SCH (12:00)
[2019-11-01] MEDS ORDERED: PIPERACILLIN/TAZOBACTAM 3.375 GM VIAL IV ONE (20:21)
[2019-11-01] MEDS: ATORVASTATIN 20 MG TAB GT SCH (20:29)
[2019-11-02] VITALS: BP 116/63
[2019-11-02 04:00] VITALS: BP 136/73
[2019-11-02] MEDS ORDERED: MEROPENEM 1,000 MG VIAL IV ONE (04:11)
[2019-11-02] MEDS: VALPROIC ACID 250 MG/5 ML UDC GT SCH ×3 (04:17→21:03)
[2019-11-02] MEDS: levETIRAcetam 100 MG/ML ORASYR GT SCH ×3 (04:17→21:03)
[2019-11-02] MEDS: NACL 0.9% 1,000 ML IV SCH ×2 (04:17→15:01)
[2019-11-02] MEDS: MEROPENEM 1,000 MG in NACL 0.9% 100 ML IV SCH ×3 (04:17→21:04)
[2019-11-02] MEDS: MIDODRINE 5 MG TAB GT SCH ×2 (05:33)
[2019-11-02 07:18] LABS: BASOPHILS # (AUTO) 0.1 K/uL (0.00-0.22); BASOPHILS % (AUTO) 0.9 % (0.0-2.0); EOSINOPHILS % (AUTO) 0.8 % (0.0-4.0); HEMATOCRIT 26.7 % (36-48); HEMOGLOBIN 9.1 g/dL (12.0-16.0); LYMPHOCYTES # (AUTO) 0.7 K/uL (2.5-16.5); LYMPHOCYTES % (AUTO) 11.7 % (20.5-51.1); MEAN CORPUSCULAR HEMOGLOBIN 37 pg (27-31); MEAN CORPUSCULAR HGB CONC 34 g/dL (33-37); MEAN CORPUSCULAR VOLUME 108.3 fL (80-94); MONOCYTES # (AUTO) 0.9 K/uL (0.8-1.0); MONOCYTES % (AUTO) 15.8 % (1.7-9.3); NEUTROPHILS % (AUTO) 70.8 % (42.2-75.2); PLATELET COUNT (AUTO) 136 K/uL (140-450); RED BLOOD CELL COUNT(AUTO) 2.46 MIL/uL (4.20-5.40); RED CELL DISTRIBUTION WIDTH 13.9 % (11.6-13.7); WHITE BLOOD COUNT (AUTO) 5.6 K/uL (4.8-10.8)
[2019-11-02 08:00] VITALS: BP 133/59
[2019-11-02] MEDS: FAMOTIDINE 20 MG TAB GT SCH ×2 (08:23→21:02)
[2019-11-02] MEDS: MULTIVITAMIN 1 TAB GT SCH (08:23)
[2019-11-02] MEDS: ASPIRIN 81 MG TAB.CHEW GT SCH (08:23)
[2019-11-02] MEDS: METOPROLOL 25 MG TAB GT SCH ×2 (08:23→21:03)
[2019-11-02] MEDS: TOPIRAMATE 100 MG TAB GT SCH ×2 (08:23→21:03)
[2019-11-02 10:51] LABS: ALBUMIN 2.6 g/dL (3.4-5.0); ANION GAP 17.2 (8-16); CARBON DIOXIDE 15.6 mmol/L (21-32); POTASSIUM 3.8 mmol/L (3.5-5.1); TOTAL BILIRUBIN 0.6 mg/dL (0.0-1.0)
[2019-11-02] MEDS ORDERED: MIDODRINE 5 MG TAB GT PRN (11:20)
[2019-11-02 12:00] VITALS: BP 133/64
[2019-11-02] MEDS ORDERED: VANCOMYCIN 1,000 MG in DEXTROSE 5% 250 ML IV SCH (15:00)
[2019-11-02] MEDS: ACETAMINOPHEN 325 MG TAB PO PRN (15:43)
[2019-11-02 16:00] VITALS: BP 138/73
[2019-11-02 20:00] VITALS: BP 141/77
[2019-11-02] MEDS: ATORVASTATIN 20 MG TAB GT SCH (21:03)
[2019-11-03] VITALS (7 sets, daily range): BP systolic 107–150; BP diastolic 56–86
[2019-11-03] MEDS: NACL 0.9% 1,000 ML IV SCH (04:27)
[2019-11-03] MEDS: VALPROIC ACID 250 MG/5 ML UDC GT SCH ×3 (04:52→20:52)
[2019-11-03] MEDS: levETIRAcetam 100 MG/ML ORASYR GT SCH ×3 (04:52→20:52)
[2019-11-03] MEDS: MEROPENEM 1,000 MG in NACL 0.9% 100 ML IV SCH ×3 (04:57→20:53)
[2019-11-03 07:07] LABS: BASOPHILS # (AUTO) 0.1 K/uL (0.00-0.22); BASOPHILS % (AUTO) 1.1 % (0.0-2.0); EOSINOPHILS % (AUTO) 0.3 % (0.0-4.0); HEMATOCRIT 25.8 % (36-48); HEMOGLOBIN 8.6 g/dL (12.0-16.0); LYMPHOCYTES # (AUTO) 1.1 K/uL (2.5-16.5); LYMPHOCYTES % (AUTO) 19.5 % (20.5-51.1); MEAN CORPUSCULAR HEMOGLOBIN 36 pg (27-31); MEAN CORPUSCULAR HGB CONC 33 g/dL (33-37); MEAN CORPUSCULAR VOLUME 107.9 fL (80-94); MONOCYTES # (AUTO) 1.1 K/uL (0.8-1.0); MONOCYTES % (AUTO) 19.3 % (1.7-9.3); NEUTROPHILS # (AUTO) 3.4 K/uL (1.8-7.7); NEUTROPHILS % (AUTO) 59.8 % (42.2-75.2); PLATELET COUNT (AUTO) 108 K/uL (140-450); RED BLOOD CELL COUNT(AUTO) 2.39 MIL/uL (4.20-5.40); RED CELL DISTRIBUTION WIDTH 13.9 % (11.6-13.7); WHITE BLOOD COUNT (AUTO) 5.7 K/uL (4.8-10.8)
[2019-11-03 08:02] LABS: ALBUMIN 2.2 g/dL (3.4-5.0); ANION GAP 18.8 (8-16); CARBON DIOXIDE 16.8 mmol/L (21-32); CREATININE 0.9 mg/dL (0.6-1.3); POTASSIUM 3.6 mmol/L (3.5-5.1); TOTAL BILIRUBIN 0.5 mg/dL (0.0-1.0)
[2019-11-03] MEDS: METOPROLOL 25 MG TAB GT SCH (08:58)
[2019-11-03] MEDS: MULTIVITAMIN 1 TAB GT SCH (08:58)
[2019-11-03] MEDS: ASPIRIN 81 MG TAB.CHEW GT SCH (08:59)
[2019-11-03] MEDS: FAMOTIDINE 20 MG TAB GT SCH ×2 (08:59→20:51)
[2019-11-03] MEDS: TOPIRAMATE 100 MG TAB GT SCH ×2 (08:59→20:51)
[2019-11-03] MEDS: ACETAMINOPHEN 325 MG TAB PO PRN ×2 (09:10→18:02)
[2019-11-03] MEDS: CHLORHEXADINE GLUC 2% CLOTH TP SCH (11:46)
[2019-11-03] MEDS: MUPIROCIN CA NASAL 2% 1GM TUBE NS SCH (11:52)
[2019-11-03] MEDS: ATORVASTATIN 20 MG TAB GT SCH (20:51)
[2019-11-03] MEDS: METOPROLOL 25 MG TAB PO SCH (20:52)
[2019-11-03] MEDS: SULFAMETH/TRIMETH DS 800/160MG 1 TAB PO SCH (20:53)
[2019-11-04] VITALS: BP 127/88
[2019-11-04] MEDS: METOPROLOL 25 MG TAB PO SCH ×4 (03:49→18:15)
[2019-11-04 04:00] VITALS: BP 138/80
[2019-11-04] MEDS: VALPROIC ACID 250 MG/5 ML UDC GT SCH ×3 (04:51→21:20)
[2019-11-04] MEDS: levETIRAcetam 100 MG/ML ORASYR GT SCH ×3 (04:51→21:20)
[2019-11-04] MEDS: MEROPENEM 1,000 MG in NACL 0.9% 100 ML IV SCH ×3 (04:51→21:22)
[2019-11-04 06:46] LABS: HEMATOCRIT 26.5 % (36-48); MEAN CORPUSCULAR HEMOGLOBIN 37 pg (27-31); MEAN CORPUSCULAR HGB CONC 34 g/dL (33-37); PLATELET COUNT (AUTO) 139 K/uL (140-450); RED BLOOD CELL COUNT(AUTO) 2.46 MIL/uL (4.20-5.40); WHITE BLOOD COUNT (AUTO) 8.9 K/uL (4.8-10.8)
[2019-11-04 07:10] LABS: ALBUMIN 2.5 g/dL (3.4-5.0); ANION GAP 14.9 (8-16); CARBON DIOXIDE 19.8 mmol/L (21-32); CREATININE 0.8 mg/dL (0.6-1.3); POTASSIUM 3.7 mmol/L (3.5-5.1); TOTAL BILIRUBIN 0.6 mg/dL (0.0-1.0)
[2019-11-04 08:00] VITALS: BP 138/84
[2019-11-04] MEDS: MULTIVITAMIN 1 TAB GT SCH (08:43)
[2019-11-04] MEDS: SULFAMETH/TRIMETH DS 800/160MG 1 TAB PO SCH ×2 (08:43→21:25)
[2019-11-04] MEDS: ASPIRIN 81 MG TAB.CHEW GT SCH (08:43)
[2019-11-04] MEDS: FAMOTIDINE 20 MG TAB GT SCH ×2 (08:43→21:21)
[2019-11-04] MEDS: TOPIRAMATE 100 MG TAB GT SCH ×2 (08:43→21:21)
[2019-11-04 09:31] LABS: BASOPHILS % (MANUAL) 0 % (0-2); EOSINOPHILS % (MANUAL) 2 % (0-4); LYMPHOCYTES % (MANUAL) 23 % (20-46); MONOCYTES % (MANUAL) 10 % (5-12)
[2019-11-04] MEDS: MUPIROCIN CA NASAL 2% 1GM TUBE NS SCH (11:00)
[2019-11-04] MEDS: CHLORHEXADINE GLUC 2% CLOTH TP SCH (11:00)
[2019-11-04 12:00] VITALS: BP 117/78
[2019-11-04 16:00] VITALS: BP 108/60
[2019-11-04 20:00] VITALS: BP 103/67
[2019-11-04] MEDS ORDERED: METOPROLOL 25 MG TAB PO SCH (21:00)
[2019-11-04] MEDS: ATORVASTATIN 20 MG TAB GT SCH (21:21)
[2019-11-05] VITALS: BP 117/58
[2019-11-05 04:00] VITALS: BP 122/72
[2019-11-05] MEDS: levETIRAcetam 100 MG/ML ORASYR GT SCH ×2 (05:06→13:06)
[2019-11-05] MEDS: MEROPENEM 1,000 MG in NACL 0.9% 100 ML IV SCH ×2 (05:06→13:08)
[2019-11-05] MEDS: VALPROIC ACID 250 MG/5 ML UDC GT SCH ×2 (05:06→13:06)
[2019-11-05] MEDS: METOPROLOL 25 MG TAB PO SCH ×4 (05:19→18:20)
[2019-11-05 06:20] LABS: BASOPHILS % (AUTO) 0.2 % (0.0-2.0); EOSINOPHILS % (AUTO) 0.6 % (0.0-4.0); HEMATOCRIT 23.8 % (36-48); LYMPHOCYTES # (AUTO) 1.8 K/uL (2.5-16.5); LYMPHOCYTES % (AUTO) 23.5 % (20.5-51.1); MEAN CORPUSCULAR HEMOGLOBIN 36 pg (27-31); MEAN CORPUSCULAR HGB CONC 34 g/dL (33-37); MONOCYTES # (AUTO) 1.5 K/uL (0.8-1.0); MONOCYTES % (AUTO) 18.6 % (1.7-9.3); NEUTROPHILS # (AUTO) 4.5 K/uL (1.8-7.7); NEUTROPHILS % (AUTO) 57.1 % (42.2-75.2); PLATELET COUNT (AUTO) 175 K/uL (140-450); RED BLOOD CELL COUNT(AUTO) 2.21 MIL/uL (4.20-5.40); RED CELL DISTRIBUTION WIDTH 13.9 % (11.6-13.7); WHITE BLOOD COUNT (AUTO) 7.8 K/uL (4.8-10.8)
[2019-11-05 07:43] LABS: ALBUMIN 2.3 g/dL (3.4-5.0); CARBON DIOXIDE 21.1 mmol/L (21-32); CREATININE 0.9 mg/dL (0.6-1.3); POTASSIUM 4.1 mmol/L (3.5-5.1); TOTAL BILIRUBIN 0.5 mg/dL (0.0-1.0)
[2019-11-05 08:00] VITALS: BP 126/78
[2019-11-05] MEDS: MULTIVITAMIN 1 TAB GT SCH (09:39)
[2019-11-05] MEDS: FAMOTIDINE 20 MG TAB GT SCH (09:39)
[2019-11-05] MEDS: TOPIRAMATE 100 MG TAB GT SCH (09:39)
[2019-11-05] MEDS: ASPIRIN 81 MG TAB.CHEW GT SCH (09:39)
[2019-11-05] MEDS: SULFAMETH/TRIMETH DS 800/160MG 1 TAB PO SCH (09:39)
[2019-11-05] MEDS: MUPIROCIN CA NASAL 2% 1GM TUBE NS SCH (11:47)
[2019-11-05] MEDS: CHLORHEXADINE GLUC 2% CLOTH TP SCH (11:48)
[2019-11-05 12:00] VITALS: BP 116/68
[2019-11-05] MEDS ORDERED: MERO1VIA13 IV ×2 (14:00→17:31)
[2019-11-05] MEDS ORDERED: SULF-47 PO (14:00)
[2019-11-05 16:00] VITALS: BP 106/57
[2019-11-05] MEDS ORDERED: SULF-58 PO (17:32)
== END 2019-11-05 19:25 | DRG 720 ==
LOC: MED 15:18 → EEVIPCON 15:18 → MIC 18:50 → MTU 11-01 14:49
PROVIDERS: ADMIT Internal Medicine Pulmonary Disease; ATTEND Internal Medicine Pulmonary Disease
PROC: 5A1955Z Respiratory Ventilation, Greater than 96 Consecutive Hours (ICD-10-PCS; principal; 2019-10-30)
PROC: 0YJ Anatomical Regions, Lower Extremities, Inspection (ICD-10-PCS; 2019-10-30)
PROC: B54DZZA Ultrasonography of Bilateral Lower Extremity Veins, Guidance (ICD-10-PCS; 2019-10-30)
DX: A41.51 Sepsis due to Escherichia coli [E. coli] (principal); G93.40 Encephalopathy, unspecified; Z99.11 Dependence on respirator [ventilator] status; J96.10 Chronic respiratory failure, unspecified whether with hypoxia or hypercapnia; J15.1 Pneumonia due to Pseudomonas; J15.8 Pneumonia due to other specified bacteria; R65.21 Severe sepsis with septic shock; N39.0 Urinary tract infection, site not specified; R13.10 Dysphagia, unspecified; G40.909 Epilepsy, unspecified, not intractable, without status epilepticus; J98.11 Atelectasis; K21.9 Gastro-esophageal reflux disease without esophagitis; Z20.828 Contact with and (suspected) exposure to other viral communicable diseases; B67.99 Other echinococcosis; Z16.12 Extended spectrum beta lactamase (ESBL) resistance; R53.2 Functional quadriplegia; Z86.74 Personal history of sudden cardiac arrest; Z93.0 Tracheostomy status; Z86.73 Personal history of transient ischemic attack (TIA), and cerebral infarction without residual deficits; Z93.1 Gastrostomy status; Z79.82 Long term (current) use of aspirin; Z79.899 Other long term (current) drug therapy; Z83.3 Family history of diabetes mellitus; Z82.49 Family history of ischemic heart disease and other diseases of the circulatory system
CPT/HCPCS: 36415; 71045; 80053; 80202; 81001; 82140; 82550; 82553; 82948; 83605; 83735; 83880; 84436; 84443; 84484; 85025; 85610; 85730; 87040; 87070; 87081; 87086; 87186; 87205; 87804; 93005; 94002; 94003; 96365; 96366; 96367; 99285; J2185; J2543; J3370; J3475; J3490; J3535; J7030; J7060; P9046; Q0092